=== PATIENT | female | born 1960 | race African-American/Black ===

== ENCOUNTER → 2017-01-30 | Outpatient (CLI) | payer OTHER | LOC: FIMAGING 11:47 | DX: Z12.31 Encounter for screening mammogram for malignant neoplasm of breast (principal) | CPT/HCPCS: G0202 ==

== ENCOUNTER 2017-06-26 10:56 | Emergency (ER) | payer OTHER ==
[2017-06-26 11:24] VITALS: RESP 16
--- NOTE | 2017-06-26 12:07 | EDPHY ---
H & P Time Seen by Provider: 06/26/17 11:36 HPI/ROS: CHIEF COMPLAINT: "I think I have an ingrown toenail " HISTORY OF PRESENT ILLNESS: 56-year-old immunocompetent female complaining of possible into her right medial great toe past week. Positive nausea palpation. No flu-like symptoms. No Fever no chills PHYSICAL EXAM (Prior to examination, patient consented to physical exam, hands were washed and my usual and customary physical exam procedures followed) 1) GENERAL: Well-developed, well-nourished, alert and oriented. Appears to be in no acute distress. 2) HEAD: Normocephalic 3) HEENT: sclera anicteric 4) LUNGS: Breathing comfortably. 5) SKIN: patient's right great toe medial aspect ingrown toenail with no paronychia however since erythema, induration consistent with cellulitis. No lymphangitic streaking. No crepitus. [ Smoking Status: Current every day smoker Constitutional: Initial Vital Signs Temperature (C) 36.7 C 06/26/17 11:02 Heart Rate 88 06/26/17 11:02 Respiratory Rate 16 06/26/17 11:02 Blood Pressure 146/88 H 06/26/17 11:02 O2 Sat (%) 96 06/26/17 11:02 O2 Delivery Mode Room Air Allergies/Adverse Reactions: No Known Allergies Allergy (Verified 06/26/17 11:01) Home Medications: Medication Instructions Recorded Cephalexin [Keflex] 500 mg PO QID 7 Days cap 06/26/17 MDM/Departure - MDM Procedures: Procedure: Partial nail removal Indications: Ingrown toenail Indications risks benefits discussed with patient she consents. The area is prepped draped/infiltrated with digital block 0.5% bupivacaine without epinephrine. After anesthesia obtained the medial aspect of the toenail was freed from the skin edges and removed by myself. The area is then dressed with sterile dressing and antibiotic ointment. Patient tolerated procedure well. - Depart Disposition: Home, Routine, Self-Care Clinical Impression: Ingrown toenail Condition: Good Instructions: Ingrown Nail (ED) Additional Instructions: Return to the ER if you develop redness, swelling, discharge, warmth to the wound, red streaks going up your leg, or any other symptoms that concern you. Prescriptions: Cephalexin [Keflex] 500 mg PO QID 7 Days cap Referrals: Sri Butler [Doctor of Podiatric Medicine] - 2-3 days, call for appt.
[2017-06-26 13:14] VITALS: BP 144/80; PULSE 81; TEMP 96.8; O2SAT 98
== END 2017-06-26 13:14 | disposition home or self-care (01) ==
PROC: 0HDRXZZ Extraction of Toe Nail, External Approach (ICD-10-PCS; principal; 2017-06-26)
DX: L60.0 Ingrowing nail (principal); F17.200 Nicotine dependence, unspecified, uncomplicated